=== PATIENT | male | born 1995 | race Caucasian/White ===

== ENCOUNTER 2023-09-05 07:04 | Emergency (ER) | payer SELFPAY ==
[~2023-09-05] VITALS: Ht 172.7 cm; Wt 65.8 kg
[2023-09-05 10:00] VITALS: BP 123/81
== END 2023-09-05 10:00 | disposition home or self-care (01) ==
LOC: ER 07:04
DX: R00.2 Palpitations (principal)
CPT/HCPCS: 71046; 93005; 93010; 99285-25